=== PATIENT | female | born 1965 | race Caucasian/White ===

== ENCOUNTER 2016-06-06 08:42 | Emergency (ER) | payer BC ==
[2016-06-06 08:57] VITALS: TEMP 97.1
[2016-06-06] MEDS ORDERED: IPRATROPIUM-ALBUTEROL 3 ML NEB INHALATION STA (09:29)
--- NOTE | 2016-06-06 09:34 | ED ---
URI HPI - General Chief Complaint: Upper Respiratory Infection Stated Complaint: TIFFANY, BEEN THROUGH 2 ROUNDS ANTIBIOTICS Time Seen by Provider: 06/06/16 09:02 Source: patient, RN notes reviewed Mode of arrival: ambulatory Limitations: no limitations - History of Present Illness Initial Comments: Patient is a 50-year-old female presents to the emergency room for evaluation of cough 5 weeks. Patient states she went to [facility] on 05/24/16 was given amoxicillin. Patient states that she took a 10 day course with no relief of symptoms. Patient states [facility]16 and was given a Z-Mahendra and prednisone. Patient states that she finished those medications on Wednesday. Patient states symptoms have still not improved. Patient states she followed up with [facility] last night and they told her that there is nothing else they could do for her and that she needed to follow up with the nearest emergency room. Patient states she does not have primary care provider. Patient states she still continuing to have a productive cough. Patient states every time she coughs she feels dizzy and lightheaded. Patient denies any chest pain. Patient denies headache. Patient denies abdominal pain. Patient does admit she has a history of asthma. Patient states she's been giving herself albuterol nebulizer treatments at home with slight relief of symptoms. Patient states after the nebulized treatment wears off, symptoms return. Patient denies smoking. Patient denies any fevers or chills. - Related Data Home Medications Medication Instructions Recorded Confirmed Albuterol Inhaler [Ventolin 2 puff INHALATION BID 03/26/14 06/01/14 Inhaler] Fluticasone/Salmeterol [Advair 2 puff INHALATION QID 03/26/14 06/01/14 250-50 Diskus] predniSONE 5 mg PO DIRECTED 05/24/14 06/01/14 Previous Rx's Medication Instructions Recorded Budesonide [Pulmicort Flexhaler] 2 puff INHALATION BID 14 Days 06/06/16 Allergies Allergy/AdvReac Type Severity Reaction Status Date / Time losartan potassium Allergy Throat Verified 05/24/14 08:42 [From Chen] swelling montelukast sodium Allergy Cough Verified 05/24/14 08:42 [From Reji] Review of Systems ROS Statement: Those systems with pertinent positive or pertinent negative responses have been documented in the HPI. ROS Other: All systems not noted in ROS Statement are negative. Past Medical History Past Medical History: Asthma, Hypertension Additional Past Medical History / Comment(s): PT STATES THAT LAST WEEK SHE THOUGHT SHE MIGHT BE STARTING INTO A FLU WITH ALITTLE SORENESS IN HER THROAT AND THEN SHE NOTICED HER B/P WAS MILDLY ELEVATED AND SHE WAS EXPERIENCING VANESSA' S. AT TIMES SHE ALSO HAD TINGLING IN BOTH ARMS AND HANDS WHEN B/P ELEVATED. THIS AM SHE NOTED CHEST PAIN WHICH RADIATED UP INTO HER ENTIRE NECK. THIS CHEST PAIN/NECK PAIN WAS WORSE WHEN LYING FLAT. SHE ALSO FELT NAUSEA WITH THIS CHEST/ NECK PAIN. History of Any Multi-Drug Resistant Organisms: None Reported Past Surgical History: Section, Cholecystectomy Additional Past Surgical History / Comment(s): UTERINE ABLATION, right breast biopsy Past Psychological History: No Psychological Hx Reported Smoking Status: Never smoker Past Alcohol Use History: None Reported Past Drug Use History: None Reported - Past Family History Father Family Medical History: Congestive Heart Failure (CHF), Coronary Artery Disease (CAD) Additional Family Medical History / Comment(s): FATHER AT 52 OF CHF Sister(s) Family Medical History: Coronary Artery Disease (CAD), Diabetes Mellitus General Exam - General Exam Comments Initial Comments: Sitting on exam chair in no acute distress. Limitations: no limitations General appearance: alert, in no apparent distress Head exam: Present: atraumatic, normocephalic, normal inspection Eye exam: Present: normal appearance ENT exam: Present: normal exam Neck exam: Present: normal inspection Respiratory exam: Present: normal lung sounds bilaterally. Absent: respiratory distress Cardiovascular Exam: Present: regular rate, normal rhythm, normal heart sounds Extremities exam: Present: normal inspection Back exam: Present: normal inspection Neurological exam: Present: alert, oriented X3, CN II-XII intact, normal gait Psychiatric exam: Present: normal affect, normal mood Skin exam: Present: warm, dry, intact, normal color. Absent: rash Course Vital Signs 06/06/16 06/06/16 06/06/16 08:53 10:06 10:17 Temperature 97.1 F L Pulse Rate 84 82 95 Respiratory 18 Rate Blood Pressure 129/79 O2 Sat by Pulse 98 Oximetry 06/06/16 10:51 Temperature Pulse Rate 111 H Respiratory 20 Rate Blood Pressure 135/89 O2 Sat by Pulse 98 Oximetry Medical Decision Making - Medical Decision Making Patient is a 50-year-old female presents to the emergency room for evaluation of cough 5 weeks. Chest x-ray shows no acute findings. Patient states she is feeling better after breathing treatment. Appears patient is having an asthma exacerbation. Patient has already been on 2 courses of antibiotics. Advised patient to follow-up with a jewelry sales representative for further evaluation. Will try patient on Pulmicort until she can see a jewelry sales representative next week. Patient states she understands everything that was discussed with her. Return parameters discussed. Case discussed with Dr. King. - Radiology Data Radiology results: report reviewed, image reviewed Disposition Clinical Impression: Asthma exacerbation Disposition: HOME SELF-CARE Condition: Good Instructions: Asthma (ED) Additional Instructions: Uses Pulmicort inhaler twice a day. Continue using other medications as directed. Please follow up with jewelry sales representative on Wednesday for further evaluation. If any new symptom arises, symptoms worsen or fever develops, return to ER as soon as possible. Prescriptions: Budesonide [Pulmicort Flexhaler] 2 puff INHALATION BID 14 Days Referrals: Sigrid Bryant MD [REFERRING] - 1-2 days Shaq Ahumada MD [STAFF PHYSICIAN] - 1-2 days Time of Disposition: 10:35
--- NOTE | 2016-06-06 09:52 | XR ---
EXAMINATION TYPE: XR chest 2V DATE OF EXAM: 06/06/2016 9:45 AM COMPARISON: 06/01/2014 INDICATION: Pain, fever TECHNIQUE: Frontal and lateral views of the chest are obtained. FINDINGS: The heart size is normal. The pulmonary vasculature is normal. The lungs are clear. IMPRESSION: 1. No acute pulmonary process.
[2016-06-06 10:52] VITALS: BP 135/89; PULSE 111; RESP 20
== END 2016-06-06 10:52 | disposition home or self-care (01) ==
LOC: EC 08:42
DX: J45.901 Unspecified asthma with (acute) exacerbation (principal); Z79.51 Long term (current) use of inhaled steroids; Z88.8 Allergy status to other drugs, medicaments and biological substances
CPT/HCPCS: 71020; 94640; 99283

== ENCOUNTER → 2016-08-05 | Outpatient (CLI) | payer BC ==
--- NOTE | 2016-08-05 13:22 | MR ---
MR brain without contrast HISTORY: Carotid dissection, headache, visual disturbance, cerebrovascular accident Multiplanar multisequence imaging through the brain and correlated to prior of 23 May 2014 There is no restricted diffusion. There is no hemorrhage or hydrocephalus. There are normal vascular flow voids. The orbits show symmetric appearance. Brain signal is stable. Periventricular white matte r shows some ill-defined increased signal on inversion recovery and T2-weighted sequences. Cerebello pontine angles, corpus callosum, pituitary, cervical medullary junction are stable and unremarkable. No significant sinus disease IMPRESSION: No significant interval change, stable exam. Nonspecific white matter demyelination, foll ow-up as indicated.
--- NOTE | 2016-08-05 13:41 | MR ---
MR angiogram of the neck with and without contrast HISTORY: Carotid dissection, cerebrovascular accident, headache and visual disturbance Multiplanar multisequence and postcontrast images obtained through the neck following 20 cc MultiHanc e IV. 3-dimensional reconstructions performed The vertebral arteries, common carotid arteries, internal and external carotid arteries are patent. L eft and right subclavian arteries, innominate artery are patent. Anterior posterior circulations are patent within the brain. Redundancy present within the internal carotid artery in the right. IMPRESSION: Dissection is not evident. Patent vasculature as described.
== END | disposition home or self-care (01) ==
LOC: RADMRIMAIN 11:27
PROVIDERS: ATTEND Psychiatry & Neurology Neurology
DX: I63.9 Cerebral infarction, unspecified (principal); G43.919 Migraine, unspecified, intractable, without status migrainosus; H53.9 Unspecified visual disturbance; M54.2 Cervicalgia
CPT/HCPCS: 70549; 70551; A9577

== ENCOUNTER → 2017-06-07 | Outpatient (CLI) | payer BC ==
[2017-06-07 12:48] LABS: Basophils # (A) 0.1 k/uL (0-0.2); Basophils % (A) 1 %; Eosinophils # (A) 0.1 k/uL (0-0.7); Eosinophils % (A) 1 %; HCT 45.4 % (34.0-46.0); HGB 15.5 gm/dL (11.4-16.0); Lymphocytes # (A) 1.8 k/uL (1.0-4.8); Lymphocytes % (A) 34 %; MCH 32.9 pg (25.0-35.0); MCV 96.8 fL (80.0-100.0); Mean Platelet Volume 7.7; Monocytes # (A) 0.3 k/uL (0-1.0); Monocytes % (A) 6 %; Neutrophils % (A) 56 %; Platelet Count 258 k/uL (150-450); WBC 5.3 k/uL (3.8-10.6)
[2017-06-07 12:51] LABS: Anion Gap 11 mmol/L; Blood Urea Nitrogen 12 mg/dL (7-17); Calcium 10.1 mg/dL (8.4-10.2); Carbon Dioxide 28 mmol/L (22-30); Chloride 102 mmol/L (98-107); Glucose 87 mg/dL (74-99); Potassium 4.2 mmol/L (3.5-5.1); Sodium 141 mmol/L (137-145)
[2017-06-07 12:52] LABS: Appearance,Urine Clear (Clear); Bacteria,Urine Few /hpf; Bilirubin,Urine Negative (Negative); Blood,Urine Negative (Negative); Color,Urine Yellow; Glucose,Urine (UA) Negative (Negative); Ketones,Urine Negative (Negative); Leukocyte Esterase,Urine Trace (Negative); Mucus,Urine Rare /hpf; Nitrite,Urine Negative (Negative); PH, Urine 6.5 (5.0-8.0); Protein,Urine Negative (Negative); RBC,Urine 1 /hpf (0-5); Specific Gravity,Urine 1.006 (1.001-1.035); Squamous Epithelial Cell,Urine <1 /hpf (0-4); Urobilinogen,Urine <2.0 mg/dL (<2.0); WBC,Urine 6 /hpf (0-5)
== END | disposition home or self-care (01) ==
LOC: LABWHC1 12:11
PROVIDERS: ATTEND Internal Medicine
DX: N39.0 Urinary tract infection, site not specified (principal); R30.0 Dysuria; R10.9 Unspecified abdominal pain
CPT/HCPCS: 36415; 80048; 81001; 85025; 87077; 87086; 87186

== ENCOUNTER 2017-06-22 16:35 | Emergency (ER) | payer BC ==
[2017-06-22 16:44] VITALS: RESP 18
[2017-06-22] MEDS ORDERED: SODIUM CHLORIDE 0.9% 1,000 ML IV STA (17:32)
[2017-06-22] MEDS ORDERED: RX INFO: IV CONTRAST WAS GIVEN 1 EACH MISC MISCELLANE PRN (17:32)
[2017-06-22] MEDS ORDERED: ONDANSETRON 4 MG/2 ML VIAL IVP STA (17:32)
[2017-06-22 17:52] LABS: Basophils % (A) 1 %; Eosinophils % (A) 1 %; HCT 44.3 % (34.0-46.0); HGB 15.4 gm/dL (11.4-16.0); Lymphocytes # (A) 0.8 k/uL (1.0-4.8); Lymphocytes % (A) 19 %; MCH 32.6 pg (25.0-35.0); MCHC 34.7 g/dL (31.0-37.0); Mean Platelet Volume 7.6; Monocytes # (A) 0.4 k/uL (0-1.0); Monocytes % (A) 9 %; Neutrophils # (A) 3.1 k/uL (1.3-7.7); Neutrophils % (A) 70 %; Platelet Count 194 k/uL (150-450); RBC 4.72 m/uL (3.80-5.40); WBC 4.5 k/uL (3.8-10.6)
[2017-06-22 17:54] LABS: Appearance,Urine Clear (Clear); Bilirubin,Urine Negative (Negative); Blood,Urine Negative (Negative); Color,Urine Yellow; Glucose,Urine (UA) Negative (Negative); Ketones,Urine 1+ (Negative); Leukocyte Esterase,Urine Negative (Negative); Mucus,Urine Few /hpf; Nitrite,Urine Negative (Negative); PH, Urine 6.5 (5.0-8.0); Protein,Urine 1+ (Negative); RBC,Urine 4 /hpf (0-5); Specific Gravity,Urine 1.012 (1.001-1.035); Squamous Epithelial Cell,Urine <1 /hpf (0-4); Urobilinogen,Urine <2.0 mg/dL (<2.0); WBC,Urine 1 /hpf (0-5)
[2017-06-22 18:02] LABS: ALT 81 U/L (9-52); AST 58 U/L (14-36); Albumin 4.5 g/dL (3.5-5.0); Alkaline Phosphatase 62 U/L (38-126); Amylase 58 U/L (30-110); Anion Gap 14 mmol/L; Blood Urea Nitrogen 9 mg/dL (7-17); Calcium 9.8 mg/dL (8.4-10.2); Carbon Dioxide 27 mmol/L (22-30); Chloride 101 mmol/L (98-107); Glucose 94 mg/dL (74-99); Lipase 26 U/L (23-300); Potassium 4.1 mmol/L (3.5-5.1); Sodium 142 mmol/L (137-145); Total Bilirubin 0.9 mg/dL (0.2-1.3); Total Protein 7.1 g/dL (6.3-8.2)
--- NOTE | 2017-06-22 18:05 | ED ---
General Adult HPI - General Chief complaint: Abdominal Pain Stated complaint: Abd Pain Time Seen by Provider: 06/22/17 17:16 Source: patient, RN notes reviewed Mode of arrival: ambulatory Limitations: no limitations - History of Present Illness Initial comments: Patient is a 51-year-old female who presents emergency room today with a chief complaint of increased abdominal pain. She does admit that she began having some increased pain in the right lower quadrant that started yesterday. Patient does not that she saw the family doctor was advised coming here to the emergency room to rule out appendicitis. Patient does admit that she's been treated for an upper respiratory infection over the last week. She states his abdominal pain started last night as a sharp pain located in the right lower quadrant. Doesn't that she's had a decreased appetite. Does admit to feeling nauseated. She denies any other complaints or symptoms. Patient denies any recent shortness of breath, chest pain, back pain, numbness or tingling, dysuria or hematuria, constipation or diarrhea, headaches or visual changes, or any other complaints. - Related Data Home Medications Medication Instructions Recorded Confirmed Fluticasone Nasal [place] [Flonase 1 spray EA NOSTRIL DAILY 06/22/17 06/22/17 Nasal [place]] Hydroxychloroquine Sulfate 200 mg PO DAILY 06/22/17 06/22/17 [Plaquenil] Multivitamins, Thera [Multivitamin 1 tab PO DAILY 06/22/17 06/22/17 (formulary)] Previous Rx's Medication Instructions Recorded Ibuprofen [Motrin] 600 mg PO Q6HR PRN #20 day 06/22/17 Allergies Allergy/AdvReac Type Severity Reaction Status Date / Time losartan potassium Allergy Throat Verified 06/22/17 17:51 [From Cozaar] swelling montelukast sodium Allergy Swelling Verified 06/22/17 17:51 [From Singulair] Review of Systems ROS Statement: Those systems with pertinent positive or pertinent negative responses have been documented in the HPI. ROS Other: All systems not noted in ROS Statement are negative. Past Medical History Past Medical History: Asthma, Hypertension Additional Past Medical History / Comment(s): PT STATES THAT LAST WEEK SHE THOUGHT SHE MIGHT BE STARTING INTO A FLU WITH ALITTLE SORENESS IN HER THROAT AND THEN SHE NOTICED HER B/P WAS MILDLY ELEVATED AND SHE WAS EXPERIENCING VANESSA' S. AT TIMES SHE ALSO HAD TINGLING IN BOTH ARMS AND HANDS WHEN B/P ELEVATED. THIS AM SHE NOTED CHEST PAIN WHICH RADIATED UP INTO HER ENTIRE NECK. THIS CHEST PAIN/NECK PAIN WAS WORSE WHEN LYING FLAT. SHE ALSO FELT NAUSEA WITH THIS CHEST/ NECK PAIN. History of Any Multi-Drug Resistant Organisms: None Reported Past Surgical History: Section, Cholecystectomy Additional Past Surgical History / Comment(s): UTERINE ABLATION, right breast biopsy Past Psychological History: No Psychological Hx Reported Smoking Status: Never smoker Past Alcohol Use History: None Reported Past Drug Use History: None Reported - Past Family History Father Family Medical History: Congestive Heart Failure (CHF), Coronary Artery Disease (CAD) Additional Family Medical History / Comment(s): FATHER AT 52 OF CHF Sister(s) Family Medical History: Coronary Artery Disease (CAD), Diabetes Mellitus General Exam - General Exam Comments Initial Comments: General: The patient is awake and alert, in no distress, and does not appear acutely ill. Eye: Pupils are equal, round and reactive to light, extra-ocular movements are intact. No nystagmus. There is normal conjunctiva bilaterally. No signs of icterus. Ears, nose, mouth and throat: There are moist mucous membranes and no oral lesions. Neck: The neck is supple, there is no tenderness or JVD. Cardiovascular: There is a regular rate and rhythm. No murmur, rub or gallop is appreciated. Respiratory: Lungs are clear to auscultation, respirations are non-labored, breath sounds are equal. No wheezes, stridor, rales, or rhonchi. Gastrointestinal: Normal appearance of the abdomen. Normal bowel sounds. Abdomen soft on palpation. Patient does have tenderness right lower quadrant over McBurney's point. No rebound tenderness. No guarding. No CVA tenderness. Musculoskeletal: Normal ROM, no tenderness. Strength 5/5. Sensation intact. Pulses equal bilaterally 2+. Neurological: A&O x 3. CN II-XII intact, There are no obvious motor or sensory deficits. Coordination appears grossly intact. Speech is normal. Skin: Skin is warm and dry and no rashes or lesions are noted. Psychiatric: Cooperative, appropriate mood & affect, normal judgment. Limitations: no limitations Course Vital Signs 06/22/17 06/22/17 06/22/17 16:42 17:36 19:10 Temperature 98.1 F 97.3 F L 98.7 F Pulse Rate 89 96 98 Respiratory 18 18 18 Rate Blood Pressure 157/97 160/79 113/78 O2 Sat by Pulse 100 98 98 Oximetry Medical Decision Making - Medical Decision Making Patient reexamined at this time shows no signs of distress. She is resting comfortably. Her labs been reviewed. No elevated white count. Negative lactic acid. Patient has no fever here in the emergency room. Patient's CT of the abdomen and pelvis is negative. There is no evidence of appendicitis. No other acute abnormalities. Results were discussed with the patient. At this time patient will be discharged home advised to follow-up the family doctor. Advised return to emergency room if symptoms increase or worsen or for any other concerns. - Lab Data Result diagrams: 06/22/17 17:25 06/22/17 17:25 Lab Results 06/22/17 06/22/17 06/22/17 Range/Units 17:25 17:25 17:25 WBC 4.5 (3.8-10.6) k/uL RBC 4.72 (3.80-5.40) m/uL Hgb 15.4 (11.4-16.0) gm/dL Hct 44.3 (34.0-46.0) % MCV 94.0 (80.0-100.0) fL MCH 32.6 (25.0-35.0) pg MCHC 34.7 (31.0-37.0) g/dL RDW 12.0 (11.5-15.5) % Plt Count 194 (150-450) k/uL Neutrophils % 70 % Lymphocytes % 19 % Monocytes % 9 % Eosinophils % 1 % Basophils % 1 % Neutrophils # 3.1 (1.3-7.7) k/uL Lymphocytes # 0.8 L (1.0-4.8) k/uL Monocytes # 0.4 (0-1.0) k/uL Eosinophils # 0.0 (0-0.7) k/uL Basophils # 0.0 (0-0.2) k/uL Sodium 142 (137-145) mmol/L Potassium 4.1 (3.5-5.1) mmol/L Chloride 101 (98-107) mmol/L Carbon Dioxide 27 (22-30) mmol/L Anion Gap 14 mmol/L BUN 9 (7-17) mg/dL Creatinine 0.59 (0.52-1.04) mg/dL Est GFR (MDRD) Af Amer >60 (>60 ml/min/1.73 sqM) Est GFR (MDRD) Non-Af >60 (>60 ml/min/1.73 sqM) Glucose 94 (74-99) mg/dL Plasma Lactic Acid Mike 1.2 (0.7-2.0) mmol/L Calcium 9.8 (8.4-10.2) mg/dL Total Bilirubin 0.9 (0.2-1.3) mg/dL AST 58 H (14-36) U/L ALT 81 H (9-52) U/L Alkaline Phosphatase 62 (38-126) U/L Total Protein 7.1 (6.3-8.2) g/dL Albumin 4.5 (3.5-5.0) g/dL Amylase 58 (30-110) U/L Lipase 26 (23-300) U/L Urine Color Urine Appearance (Clear) Urine pH (5.0-8.0) Ur Specific [place] (1.001-1.035) Urine Protein (Negative) Urine Glucose (UA) (Negative) Urine Ketones (Negative) Urine Blood (Negative) Urine Nitrite (Negative) Urine Bilirubin (Negative) Urine Urobilinogen (<2.0) mg/dL Ur Leukocyte Esterase (Negative) Urine RBC (0-5) /hpf Urine WBC (0-5) /hpf Ur Squamous Epith Cells (0-4) /hpf Urine Mucus (None) /hpf Urine HCG, Qual (Not Detectd) 06/22/17 06/22/17 Range/Units 17:25 17:25 WBC (3.8-10.6) k/uL RBC (3.80-5.40) m/uL Hgb (11.4-16.0) gm/dL Hct (34.0-46.0) % MCV (80.0-100.0) fL MCH (25.0-35.0) pg MCHC (31.0-37.0) g/dL RDW (11.5-15.5) % Plt Count (150-450) k/uL Neutrophils % % Lymphocytes % % Monocytes % % Eosinophils % % Basophils % % Neutrophils # (1.3-7.7) k/uL Lymphocytes # (1.0-4.8) k/uL Monocytes # (0-1.0) k/uL Eosinophils # (0-0.7) k/uL Basophils # (0-0.2) k/uL Sodium (137-145) mmol/L Potassium (3.5-5.1) mmol/L Chloride (98-107) mmol/L Carbon Dioxide (22-30) mmol/L Anion Gap mmol/L BUN (7-17) mg/dL Creatinine (0.52-1.04) mg/dL Est GFR (MDRD) Af Amer (>60 ml/min/1.73 sqM) Est GFR (MDRD) Non-Af (>60 ml/min/1.73 sqM) Glucose (74-99) mg/dL Plasma Lactic Acid Mike (0.7-2.0) mmol/L Calcium (8.4-10.2) mg/dL Total Bilirubin (0.2-1.3) mg/dL AST (14-36) U/L ALT (9-52) U/L Alkaline Phosphatase (38-126) U/L Total Protein (6.3-8.2) g/dL Albumin (3.5-5.0) g/dL Amylase (30-110) U/L Lipase (23-300) U/L Urine Color Yellow Urine Appearance Clear (Clear) Urine pH 6.5 (5.0-8.0) Ur Specific [place] 1.012 (1.001-1.035) Urine Protein 1+ H (Negative) Urine Glucose (UA) Negative (Negative) Urine Ketones 1+ H (Negative) Urine Blood Negative (Negative) Urine Nitrite Negative (Negative) Urine Bilirubin Negative (Negative) Urine Urobilinogen <2.0 (<2.0) mg/dL Ur Leukocyte Esterase Negative (Negative) Urine RBC 4 (0-5) /hpf Urine WBC 1 (0-5) /hpf Ur Squamous Epith Cells <1 (0-4) /hpf Urine Mucus Few H (None) /hpf Urine HCG, Qual Not Detected (Not Detectd) Disposition Clinical Impression: Abdominal pain Disposition: HOME SELF-CARE Condition: Good Instructions: Abdominal Pain (ED) Additional Instructions: Please follow-up with family doctor in the next 2 days of symptoms have not improved. Please return to emergency room if the symptoms increase or worsen or for any other concerns. Prescriptions: Ibuprofen [Motrin] 600 mg PO Q6HR PRN #20 day PRN Reason: Pain Referrals: Daljit Alberto MD [Primary Care Provider] - 1-2 days Time of Disposition: 19:34
--- NOTE | 2017-06-22 18:41 | XR ---
EXAMINATION TYPE: XR abdomen and pelvis 2 views DATE OF EXAM: 06/22/2017 COMPARISON: NONE HISTORY: Pain in the right lower quadrant, nausea and constipation TECHNIQUE: Upright views - 2V FINDINGS: There is no pneumatosis or pneumoperitoneum. Bowel gas pattern is normal. Bones and soft ti ssues and visualized lung bases and pleural spaces are unremarkable. IMPRESSION: No acute process.
--- NOTE | 2017-06-22 19:04 | CT ---
EXAMINATION TYPE: CT abdomen pelvis w con DATE OF EXAM: 06/22/2017 COMPARISON: NONE HISTORY: RLQ pain/fever x2 days. CT DLP: 595.2 mGycm Automated exposure control for dose reduction was used. TECHNIQUE: Helical acquisition of images was performed from the lung bases through the pelvis. Noted that 3-min delay scanned though pelvis due to off centering for first scan due to having to mov e pt out of gantry for vomiting. CONTRAST: Performed without Oral Contrast and with IV Contrast, patient injected with 100 mL of Omnip aque 300. FINDINGS: LUNG BASES: No significant abnormality is appreciated. LIVER/GB: No significant abnormality is appreciated. PANCREAS: No significant abnormality is seen. SPLEEN: No significant abnormality is seen. ADRENALS: No significant abnormality is seen. KIDNEYS: No significant abnormality is seen. FREE AIR: No free air is visualized. RETROPERITONEAL ADENOPATHY: None visualized REPRODUCTIVE ORGANS: No significant abnormality is seen URINARY BLADDER: No significant abnormality is seen. PELVIC ADENOPATHY: None visualized. OSSEOUS STRUCTURES: No significant abnormality is seen. BOWEL: No significant abnormality is seen. OTHER: Right upper quadrant has normal appearance. IMPRESSION: NO ACUTE PROCESS.
[2017-06-22 19:11] VITALS: TEMP 98.7
[2017-06-22 19:39] VITALS: BP 130/65; PULSE 90
== END 2017-06-22 19:39 | disposition home or self-care (01) ==
LOC: EC 16:35
DX: R10.31 Right lower quadrant pain (principal); R11.0 Nausea; J45.909 Unspecified asthma, uncomplicated; Z79.51 Long term (current) use of inhaled steroids; Z79.899 Other long term (current) drug therapy; Z88.8 Allergy status to other drugs, medicaments and biological substances
CPT/HCPCS: 36415; 80053; 82150; 83605; 83690; 85025; 81001; 81025; 74018; 74177; 99284; 96374; 96361; J2405; Q9967

== ENCOUNTER → 2017-07-03 | Outpatient (CLI) | payer BC ==
[2017-07-03 10:01] LABS: Anion Gap 11 mmol/L; Blood Urea Nitrogen 13 mg/dL (7-17); Calcium 9.6 mg/dL (8.4-10.2); Carbon Dioxide 28 mmol/L (22-30); Chloride 101 mmol/L (98-107); Glucose 82 mg/dL (74-99); Potassium 4.5 mmol/L (3.5-5.1); Sodium 140 mmol/L (137-145)
[2017-07-03 10:15] LABS: T4, Free (Free Thyroxine) 1.24 ng/dL (0.78-2.19)
== END | disposition home or self-care (01) ==
LOC: LABWHC1 07:47
PROVIDERS: ATTEND Internal Medicine
DX: R63.4 Abnormal weight loss (principal)
CPT/HCPCS: 36415; 80048; 82024; 82533; 84439; 84443

== ENCOUNTER → 2018-03-17 | Outpatient (CLI) | payer BC | LOC: LABWHC1 08:46 | PROVIDERS: ATTEND Internal Medicine | DX: E78.2 Mixed hyperlipidemia (principal) | CPT/HCPCS: 36415; 80061 ==

== ENCOUNTER 2018-11-05 08:28 | Emergency (ER) | payer BC ==
[2018-11-05] MEDS ORDERED: IPRATROPIUM-ALBUTEROL 3 ML NEB INHALATION STA (08:47)
[2018-11-05] MEDS ORDERED: methylPREDNISolone SOD SUCCI 125 MG/2 ML VIAL IV STA (08:47)
[2018-11-05] MEDS ORDERED: SODIUM CHLORIDE 0.9% 1,000 ML IV STA (08:47)
[2018-11-05] MEDS ORDERED: METOCLOPRAMIDE 5 MG/ML 2 ML VIAL IVP STA (08:48)
--- NOTE | 2018-11-05 08:51 | ED ---
General Adult HPI - General Chief complaint: Upper Respiratory Infection Stated complaint: Cough Time Seen by Provider: 11/05/18 08:38 Source: patient, RN notes reviewed Mode of arrival: ambulatory Limitations: no limitations - History of Present Illness Initial comments: Patient is a pleasant 82-year-old female presenting to the emergency Department with complaints of cough. Onset of symptoms was around 4 weeks ago. Patient has had continued symptoms despite treatment with Cipro and steroids by her primary care physician. Patient does have a history of asthma as well. Cough does have occasional white sputum. No fevers. Patient states she does feel a little short of breath. Patient states she also has sinus congestion. Patient states she started developing a headache yesterday that is worse today. Headache was gradual onset and has been aggressively worsened since that time. Patient does have some nausea associated with this. - Related Data Home Medications Medication Instructions Recorded Confirmed Fluticasone Nasal [place] [Flonase 1 spray EA NOSTRIL DAILY 06/22/17 11/05/18 Nasal [place]] Hydroxychloroquine Sulfate 200 mg PO DAILY 06/22/17 11/05/18 [Plaquenil] Multivitamins, Thera [Multivitamin 1 tab PO DAILY 06/22/17 11/05/18 (formulary)] Albuterol Nebulized [Ventolin 2.5 mg INHALATION RT-Q6H PRN 11/05/18 11/05/18 Nebulized] [place]-3 Fatty Acids [[place]-3] 1,000 mg PO DAILY 11/05/18 11/05/18 Omeprazole [PriLOSEC] 20 mg PO DAILY PRN 11/05/18 11/05/18 Previous Rx's Medication Instructions Recorded Azithromycin [Zithromax Z-pack] 250 mg PO DIRECTED #6 tab 11/05/18 methylPREDNISolone Dose Pack 24 mg PO DAILY #1 tab 11/05/18 [Medrol Dose Pack] Allergies Allergy/AdvReac Type Severity Reaction Status Date / Time losartan potassium Allergy Throat Verified 11/05/18 09:16 [From Cozaar] swelling montelukast sodium Allergy Swelling Verified 11/05/18 09:16 [From Singulair] Review of Systems ROS Statement: Those systems with pertinent positive or pertinent negative responses have been documented in the HPI. ROS Other: All systems not noted in ROS Statement are negative. Constitutional: Denies: fever Eyes: Denies: eye pain ENT: Reports: congestion. Denies: ear pain Respiratory: Reports: cough, dyspnea Cardiovascular: Denies: chest pain Gastrointestinal: Reports: nausea. Denies: abdominal pain Genitourinary: Denies: dysuria Musculoskeletal: Denies: back pain Skin: Denies: rash Neurological: Reports: headache. Denies: weakness, confusion Past Medical History Past Medical History: Asthma, Hypertension Additional Past Medical History / Comment(s): PT STATES THAT LAST WEEK SHE T HOUGHT SHE MIGHT BE STARTING INTO A FLU WITH ALITTLE SORENESS IN HER THROAT AND THEN SHE NOTICED HER B/P WAS MILDLY ELEVATED AND SHE WAS EXPERIENCING VANESSA'S. AT TIMES SHE ALSO HAD TINGLING IN BOTH ARMS AND HANDS WHEN B/P ELEVATED. THIS AM SHE NOTED CHEST PAIN WHICH RADIATED UP INTO HER ENTIRE NECK. THIS CHEST PAIN/NECK PAIN WAS WORSE WHEN LYING FLAT. SHE ALSO FELT NAUSEA WITH THIS CHEST/NECK PAIN. History of Any Multi-Drug Resistant Organisms: None Reported Past Surgical History: Section, Cholecystectomy Additional Past Surgical History / Comment(s): UTERINE ABLATION, right breast biopsy Past Psychological History: No Psychological Hx Reported Smoking Status: Never smoker Past Alcohol Use History: None Reported Past Drug Use History: None Reported - Past Family History Father Family Medical History: Congestive Heart Failure (CHF), Coronary Artery Disease (CAD) Additional Family Medical History / Comment(s): FATHER AT 52 OF CHF Sister(s) Family Medical History: Coronary Artery Disease (CAD), Diabetes Mellitus General Exam Limitations: no limitations General appearance: alert, in no apparent distress Head exam: Present: atraumatic Eye exam: Present: normal appearance, PERRL, EOMI. Absent: nystagmus ENT exam: Present: normal oropharynx Neck exam: Present: normal inspection Respiratory exam: Present: normal lung sounds bilaterally. Absent: respiratory distress Cardiovascular Exam: Present: regular rate, normal rhythm GI/Abdominal exam: Present: soft. Absent: tenderness Extremities exam: Present: normal inspection. Absent: pedal edema, calf tenderness Neurological exam: Present: alert, oriented X3, CN II-XII intact. Absent: motor sensory deficit Expanded Neurological exam: Present: protecting the airway Speech: Present: fluid speech Motor strength exam: RUE: 5, LUE: 5, RLE: 5, LLE: 5 Eye Response: (4) open spontaneously Motor Response: (6) obeys commands Verbal Response: (5) oriented Psychiatric exam: Present: normal affect, normal mood Skin exam: Present: normal color Course Vital Signs 11/05/18 11/05/18 11/05/18 08:30 09:03 09:08 Temperature 98.2 F Pulse Rate 77 76 84 Respiratory 16 Rate Blood Pressure 157/85 O2 Sat by Pulse 99 Oximetry 11/05/18 09:19 Temperature Pulse Rate Respiratory 18 Rate Blood Pressure O2 Sat by Pulse Oximetry Medical Decision Making - Medical Decision Making Patient reevaluated and resting comfortably in bed. Patient states she feels much better at this time. Patient is updated on results and need for follow-up. - Lab Data Result diagrams: 11/05/18 09:13 11/05/18 09:13 Lab Results 11/05/18 11/05/18 11/05/18 Range/Units 09:13 09:13 09:13 WBC 8.5 (3.8-10.6) k/uL RBC 4.60 (3.80-5.40) m/uL Hgb 14.6 (11.4-16.0) gm/dL Hct 44.2 (34.0-46.0) % MCV 96.2 (80.0-100.0) fL MCH 31.8 (25.0-35.0) pg MCHC 33.1 (31.0-37.0) g/dL RDW 12.5 (11.5-15.5) % Plt Count 227 (150-450) k/uL Neutrophils % 82 % Lymphocytes % 14 % Monocytes % 3 % Eosinophils % 1 % Basophils % 0 % Neutrophils # 6.9 (1.3-7.7) k/uL Lymphocytes # 1.2 (1.0-4.8) k/uL Monocytes # 0.3 (0-1.0) k/uL Eosinophils # 0.0 (0-0.7) k/uL Basophils # 0.0 (0-0.2) k/uL PT 10.5 (9.0-12.0) sec INR 1.0 (<1.2) APTT 25.6 (22.0-30.0) sec D-Dimer <0.17 (<0.60) mg/L FEU Sodium 141 (137-145) mmol/L Potassium 4.4 (3.5-5.1) mmol/L Chloride 106 (98-107) mmol/L Carbon Dioxide 27 (22-30) mmol/L Anion Gap 8 mmol/L BUN 19 H (7-17) mg/dL Creatinine 0.56 (0.52-1.04) mg/dL Est GFR (CKD-EPI)AfAm >90 (>60 ml/min/1.73 sqM) Est GFR (CKD-EPI)NonAf >90 (>60 ml/min/1.73 sqM) Glucose 102 H (74-99) mg/dL Calcium 9.5 (8.4-10.2) mg/dL Total Bilirubin 0.7 (0.2-1.3) mg/dL AST 32 (14-36) U/L ALT 48 (9-52) U/L Alkaline Phosphatase 44 (38-126) U/L NT-Pro-B Natriuret Pep pg/mL Total Protein 6.7 (6.3-8.2) g/dL Albumin 4.2 (3.5-5.0) g/dL 11/05/18 Range/Units 09:13 WBC (3.8-10.6) k/uL RBC (3.80-5.40) m/uL Hgb (11.4-16.0) gm/dL Hct (34.0-46.0) % MCV (80.0-100.0) fL MCH (25.0-35.0) pg MCHC (31.0-37.0) g/dL RDW (11.5-15.5) % Plt Count (150-450) k/uL Neutrophils % % Lymphocytes % % Monocytes % % Eosinophils % % Basophils % % Neutrophils # (1.3-7.7) k/uL Lymphocytes # (1.0-4.8) k/uL Monocytes # (0-1.0) k/uL Eosinophils # (0-0.7) k/uL Basophils # (0-0.2) k/uL PT (9.0-12.0) sec INR (<1.2) APTT (22.0-30.0) sec D-Dimer (<0.60) mg/L FEU Sodium (137-145) mmol/L Potassium (3.5-5.1) mmol/L Chloride (98-107) mmol/L Carbon Dioxide (22-30) mmol/L Anion Gap mmol/L BUN (7-17) mg/dL Creatinine (0.52-1.04) mg/dL Est GFR (CKD-EPI)AfAm (>60 ml/min/1.73 sqM) Est GFR (CKD-EPI)NonAf (>60 ml/min/1.73 sqM) Glucose (74-99) mg/dL Calcium (8.4-10.2) mg/dL Total Bilirubin (0.2-1.3) mg/dL AST (14-36) U/L ALT (9-52) U/L Alkaline Phosphatase (38-126) U/L NT-Pro-B Natriuret Pep 35 pg/mL Total Protein (6.3-8.2) g/dL Albumin (3.5-5.0) g/dL - Radiology Data Radiology results: image reviewed (Chest x-ray shows no acute process) Disposition Clinical Impression: Asthmatic bronchitis Disposition: HOME SELF-CARE Condition: Stable Instructions (If sedation given, give patient instructions): Acute Bronchitis (ED) Additional Instructions: Please do follow-up with Dr. Alberto in the next day or 2 for recheck. Return for fevers, difficulty breathing, worsening or changing symptoms or other concerns. Prescriptions: methylPREDNISolone Dose Pack [Medrol Dose Pack] 24 mg PO DAILY #1 tab Azithromycin [Zithromax Z-pack] 250 mg PO DIRECTED #6 tab Is patient prescribed a controlled substance at d/c from ED?: No Referrals: Daljit Alberto MD [Primary Care Provider] - 1-2 days Time of Disposition: 10:30
[2018-11-05 09:28] LABS: Basophils % (A) 0 %; Eosinophils % (A) 1 %; HCT 44.2 % (34.0-46.0); HGB 14.6 gm/dL (11.4-16.0); Lymphocytes # (A) 1.2 k/uL (1.0-4.8); Lymphocytes % (A) 14 %; MCH 31.8 pg (25.0-35.0); MCHC 33.1 g/dL (31.0-37.0); MCV 96.2 fL (80.0-100.0); Mean Platelet Volume 6.8; Monocytes # (A) 0.3 k/uL (0-1.0); Monocytes % (A) 3 %; Neutrophils # (A) 6.9 k/uL (1.3-7.7); Neutrophils % (A) 82 %; Platelet Count 227 k/uL (150-450); RDW 12.5 % (11.5-15.5); WBC 8.5 k/uL (3.8-10.6)
[2018-11-05 09:34] LABS: ALT 48 U/L (9-52); AST 32 U/L (14-36); African American GFR (CKD) >90 (>60 ml/min/1.73 sqM); Albumin 4.2 g/dL (3.5-5.0); Alkaline Phosphatase 44 U/L (38-126); Anion Gap 8 mmol/L; Blood Urea Nitrogen 19 mg/dL (7-17); Calcium 9.5 mg/dL (8.4-10.2); Carbon Dioxide 27 mmol/L (22-30); Chloride 106 mmol/L (98-107); Glucose 102 mg/dL (74-99); Potassium 4.4 mmol/L (3.5-5.1); Sodium 141 mmol/L (137-145); Total Bilirubin 0.7 mg/dL (0.2-1.3); Total Protein 6.7 g/dL (6.3-8.2)
--- NOTE | 2018-11-05 09:38 | XR ---
EXAMINATION TYPE: XR chest 2V DATE OF EXAM ORDERED: 11/05/2018 HISTORY: difficulty breathing. REFERENCE: Previous study dated 06/06/2016. FINDINGS: The lungs are clear. Pleural spaces are clear. Heart size is normal. IMPRESSION: NORMAL CHEST.
[2018-11-05 09:40] LABS: Partial Thromboplastin Time 25.6 sec (22.0-30.0); Prothrombin Time 10.5 sec (9.0-12.0)
[2018-11-05 09:45] LABS: D-Dimer <0.17 mg/L FEU (<0.60)
[2018-11-05 10:32] VITALS: BP 125/74; PULSE 72; RESP 16; TEMP 97.8
== END 2018-11-05 10:31 | disposition home or self-care (01) ==
LOC: EC 08:28
DX: J45.909 Unspecified asthma, uncomplicated (principal); I10 Essential (primary) hypertension; Z79.51 Long term (current) use of inhaled steroids; Z79.899 Other long term (current) drug therapy; Z88.8 Allergy status to other drugs, medicaments and biological substances
CPT/HCPCS: 36415; 94640; 85379; 83880; 80053; 85025; 85610; 85730; 71046; 99284; 96374; 96375; 96361; J2765; J2930

== ENCOUNTER → 2018-11-05 | Outpatient (CLI) | payer BC ==
[2018-11-05 15:57] LABS: LDL Cholesterol,Calculated 107.4 mg/dL (0.0-131.0); VLDL Calculation 12.6 mg/dL (5.00-40.00)
== END | disposition home or self-care (01) ==
LOC: LABWHC1 10:44
PROVIDERS: ATTEND Internal Medicine
DX: E78.5 Hyperlipidemia, unspecified (principal)
CPT/HCPCS: 36415; 80061

== ENCOUNTER → 2019-04-08 | Outpatient (CLI) | payer BC ==
[2019-04-08 11:27] LABS: Basophils % (A) 0 %; Eosinophils # (A) 0.1 k/uL (0-0.7); Eosinophils % (A) 1 %; HCT 41.2 % (34.0-46.0); HGB 14.5 gm/dL (11.4-16.0); Lymphocytes # (A) 1.8 k/uL (1.0-4.8); Lymphocytes % (A) 25 %; MCH 33.7 pg (25.0-35.0); MCHC 35.3 g/dL (31.0-37.0); MCV 95.6 fL (80.0-100.0); Mean Platelet Volume 6.2; Monocytes # (A) 0.4 k/uL (0-1.0); Monocytes % (A) 6 %; Neutrophils # (A) 4.8 k/uL (1.3-7.7); Neutrophils % (A) 67 %; Platelet Count 228 k/uL (150-450); RBC 4.31 m/uL (3.80-5.40); RDW 12.4 % (11.5-15.5); WBC 7.2 k/uL (3.8-10.6)
[2019-04-08 16:48] LABS: ALT 50 U/L (8-44); AST 36 U/L (13-35); African American GFR (CKD) 121.5 (60.0-200.0); Albumin/Globulin Ratio 2.28 (1.60-3.17); Alkaline Phosphatase 50 U/L (41-126); Bilirubin, Conjugated <0.20 mg/dL (0.20-0.40); Globulin 1.8 g/dL (1.6-3.3); Non-African American GFR(CKD) 104.8 (60.0-200.0); Total Bilirubin 0.5 mg/dL (0.2-1.2); Total Protein 5.9 g/dL (6.2-8.2)
== END | disposition home or self-care (01) ==
LOC: LABWHC1 10:44
PROVIDERS: ATTEND Internal Medicine
DX: M25.50 Pain in unspecified joint (principal); M06.9 Rheumatoid arthritis, unspecified; Z51.81 Encounter for therapeutic drug level monitoring
CPT/HCPCS: 36415; 80076; 82565; 85025

== ENCOUNTER 2019-04-11 06:51 | Emergency (ER) | payer BC ==
[2019-04-11] MEDS ORDERED: MORPHINE SULFATE 4 MG/ML SYRINGE IV STA (07:06)
[2019-04-11] MEDS ORDERED: ONDANSETRON 4 MG/2 ML VIAL IVP STA (07:06)
[2019-04-11] MEDS ORDERED: SODIUM CHLORIDE 0.9% 1,000 ML IV STA (07:06)
[2019-04-11 07:58] LABS: Basophils # (A) 0.1 k/uL (0-0.2); Basophils % (A) 1 %; Eosinophils % (A) 0 %; HCT 44.5 % (34.0-46.0); HGB 15.7 gm/dL (11.4-16.0); Lymphocytes # (A) 0.3 k/uL (1.0-4.8); Lymphocytes % (A) 4 %; MCH 33.5 pg (25.0-35.0); MCHC 35.3 g/dL (31.0-37.0); MCV 95.1 fL (80.0-100.0); Mean Platelet Volume 6.6; Monocytes # (A) 0.2 k/uL (0-1.0); Monocytes % (A) 3 %; Neutrophils # (A) 7.8 k/uL (1.3-7.7); Neutrophils % (A) 92 %; Platelet Count 207 k/uL (150-450); RBC 4.68 m/uL (3.80-5.40); RDW 12.2 % (11.5-15.5); WBC 8.4 k/uL (3.8-10.6)
[2019-04-11 08:01] LABS: Appearance,Urine Clear (Clear); Bilirubin,Urine Negative (Negative); Blood,Urine Negative (Negative); Color,Urine Yellow; Glucose,Urine (UA) Negative (Negative); Ketones,Urine 1+ (Negative); Leukocyte Esterase,Urine Negative (Negative); Nitrite,Urine Negative (Negative); Protein,Urine Trace (Negative); Specific Gravity,Urine 1.019 (1.001-1.035); Urobilinogen,Urine <2.0 mg/dL (<2.0)
--- NOTE | 2019-04-11 08:04 | ED ---
Abdominal Pain HPI - General Chief Complaint: Abdominal Pain Stated Complaint: abd pain, vomiting Time Seen by Provider: 04/11/19 06:57 Source: patient, RN notes reviewed Mode of arrival: ambulatory Limitations: no limitations - History of Present Illness Initial Comments: This is a 53-year-old female presents emergency Department chief complaint of abdominal pain, nausea vomiting. Patient states that she has not felt well over the last month or so but states last few days she's had worsening symptoms. She complains of left-sided abdominal pain, diffuse bloating and intermittent diarrhea. Patient states that she did have a fever last night of 101-102. Patient states she is concerned because she was on methotrexate and Plaquenil but had to discontinue methotrexate because he believe this is causing her abdominal issues. She is unable to see her GI physician at [facility] until May. Patient has no dysuria no hematuria denies any on her hematochezia. states that she's had prior section, cholecystectomy she has had a colonoscopy past with no acute findings. - Related Data Home Medications Medication Instructions Recorded Confirmed Fluticasone Nasal [place] [Flonase 1 spray EA NOSTRIL DAILY 06/22/17 11/05/18 Nasal [place]] Hydroxychloroquine Sulfate 200 mg PO DAILY 06/22/17 11/05/18 [Plaquenil] Multivitamins, Thera [Multivitamin 1 tab PO DAILY 06/22/17 11/05/18 (formulary)] Albuterol Nebulized [Ventolin 2.5 mg INHALATION RT-Q6H PRN 11/05/18 11/05/18 Nebulized] [place]-3 Fatty Acids [[place]-3] 1,000 mg PO DAILY 11/05/18 11/05/18 Omeprazole [PriLOSEC] 20 mg PO DAILY PRN 11/05/18 11/05/18 Previous Rx's Medication Instructions Recorded Azithromycin [Zithromax Z-pack] 250 mg PO DIRECTED #6 tab 11/05/18 methylPREDNISolone Dose Pack 24 mg PO DAILY #1 tab 11/05/18 [Medrol Dose Pack] Amoxicillin/Potassium Clav 1 tab PO Q12HR #20 tab 04/11/19 [Augmentin 875-125 Tablet] Allergies Allergy/AdvReac Type Severity Reaction Status Date / Time losartan potassium Allergy Throat Verified 04/11/19 06:56 [From Cozaar] swelling montelukast sodium Allergy Swelling Verified 04/11/19 06:56 [From [facility]] Review of Systems ROS Statement: Those systems with pertinent positive or pertinent negative responses have been documented in the HPI. ROS Other: All systems not noted in ROS Statement are negative. Past Medical History Past Medical History: Asthma, Hypertension Additional Past Medical History / Comment(s): PT STATES THAT LAST WEEK SHE THOUGHT SHE MIGHT BE STARTING INTO A FLU WITH ALITTLE SORENESS IN HER THROAT AND THEN SHE NOTICED HER B/P WAS MILDLY ELEVATED AND SHE WAS EXPERIENCING VANESSA'S. AT TIMES SHE ALSO HAD TINGLING IN BOTH ARMS AND HANDS WHEN B/P ELEVATED. THIS AM SHE NOTED CHEST PAIN WHICH RADIATED UP INTO HER ENTIRE NECK. THIS CHEST PAIN/NECK PAIN WAS WORSE WHEN LYING FLAT. SHE ALSO FELT NAUSEA WITH THIS CHEST/NECK PAIN. History of Any Multi-Drug Resistant Organisms: None Reported Past Surgical History: Section, Cholecystectomy Additional Past Surgical History / Comment(s): UTERINE ABLATION, right breast biopsy Past Psychological History: No Psychological Hx Reported Smoking Status: Never smoker Past Alcohol Use History: None Reported Past Drug Use History: None Reported - Past Family History Father Family Medical History: Congestive Heart Failure (CHF), Coronary Artery Disease (CAD) Additional Family Medical History / Comment(s): FATHER AT 52 OF CHF Sister(s) Family Medical History: Coronary Artery Disease (CAD), Diabetes Mellitus General Exam Limitations: no limitations General appearance: alert, in no apparent distress Head exam: Present: atraumatic, normocephalic, normal inspection Eye exam: Present: normal appearance, PERRL, EOMI. Absent: scleral icterus, con junctival injection, periorbital swelling ENT exam: Present: mucous membranes moist Neck exam: Present: normal inspection, full ROM. Absent: tenderness, meningismus, lymphadenopathy Respiratory exam: Present: normal lung sounds bilaterally. Absent: respiratory distress, wheezes, rales, rhonchi, stridor Cardiovascular Exam: Present: regular rate, normal rhythm, normal heart sounds. Absent: systolic murmur, diastolic murmur, rubs, gallop, clicks GI/Abdominal exam: Present: soft, tenderness (Moderate left-sided), normal bowel sounds. Absent: distended, guarding, rebound, rigid Back exam: Absent: CVA tenderness (R), CVA tenderness (L) Neurological exam: Present: alert, oriented X3 Skin exam: Present: warm, dry, intact, normal color. Absent: rash Course Vital Signs 04/11/19 04/11/19 04/11/19 06:52 08:00 09:00 Temperature 98.1 F Pulse Rate 78 Respiratory 17 Rate Blood Pressure 131/79 126/81 124/79 O2 Sat by Pulse 97 96 Oximetry Medical Decision Making - Medical Decision Making Patient's labs are essentially unremarkable CT shows evidence of colitis, some small bowel loops aren't dilated. Patient we treated for colitis at this time with Augmentin. Patient states she had a ALLERGY to Cipro. Return parameters were discussed and close follow-up was discussed. - Lab Data Result diagrams: 04/11/19 07:37 04/11/19 07:37 Lab Results 04/11/19 04/11/19 04/11/19 Range/Units 07:37 07:37 07:37 WBC 8.4 (3.8-10.6) k/uL RBC 4.68 (3.80-5.40) m/uL Hgb 15.7 (11.4-16.0) gm/dL Hct 44.5 (34.0-46.0) % MCV 95.1 (80.0-100.0) fL MCH 33.5 (25.0-35.0) pg MCHC 35.3 (31.0-37.0) g/dL RDW 12.2 (11.5-15.5) % Plt Count 207 (150-450) k/uL Neutrophils % 92 % Lymphocytes % 4 % Monocytes % 3 % Eosinophils % 0 % Basophils % 1 % Neutrophils # 7.8 H (1.3-7.7) k/uL Lymphocytes # 0.3 L (1.0-4.8) k/uL Monocytes # 0.2 (0-1.0) k/uL Eosinophils # 0.0 (0-0.7) k/uL Basophils # 0.1 (0-0.2) k/uL Sodium 137 (137-145) mmol/L Potassium 4.1 (3.5-5.1) mmol/L Chloride 104 (98-107) mmol/L Carbon Dioxide 23 (22-30) mmol/L Anion Gap 10 mmol/L BUN 13 (7-17) mg/dL Creatinine 0.56 (0.52-1.04) mg/dL Est GFR (CKD-EPI)AfAm >90 (>60 ml/min/1.73 sqM) Est GFR (CKD-EPI)NonAf >90 (>60 ml/min/1.73 sqM) Glucose 102 H (74-99) mg/dL Plasma Lactic Acid Mike 0.8 (0.7-2.0) mmol/L Calcium 9.0 (8.4-10.2) mg/dL Total Bilirubin 1.4 H (0.2-1.3) mg/dL AST 185 H (14-36) U/L ALT 207 H (9-52) U/L Alkaline Phosphatase 52 (38-126) U/L Total Protein 6.6 (6.3-8.2) g/dL Albumin 4.1 (3.5-5.0) g/dL Amylase 49 (30-110) U/L Lipase 30 (23-300) U/L Urine Color Urine Appearance (Clear) Urine pH (5.0-8.0) Ur Specific [place] (1.001-1.035) Urine Protein (Negative) Urine Glucose (UA) (Negative) Urine Ketones (Negative) Urine Blood (Negative) Urine Nitrite (Negative) Urine Bilirubin (Negative) Urine Urobilinogen (<2.0) mg/dL Ur Leukocyte Esterase (Negative) 04/11/19 Range/Units 07:37 WBC (3.8-10.6) k/uL RBC (3.80-5.40) m/uL Hgb (11.4-16.0) gm/dL Hct (34.0-46.0) % MCV (80.0-100.0) fL MCH (25.0-35.0) pg MCHC (31.0-37.0) g/dL RDW (11.5-15.5) % Plt Count (150-450) k/uL Neutrophils % % Lymphocytes % % Monocytes % % Eosinophils % % Basophils % % Neutrophils # (1.3-7.7) k/uL Lymphocytes # (1.0-4.8) k/uL Monocytes # (0-1.0) k/uL Eosinophils # (0-0.7) k/uL Basophils # (0-0.2) k/uL Sodium (137-145) mmol/L Potassium (3.5-5.1) mmol/L Chloride (98-107) mmol/L Carbon Dioxide (22-30) mmol/L Anion Gap mmol/L BUN (7-17) mg/dL Creatinine (0.52-1.04) mg/dL Est GFR (CKD-EPI)AfAm (>60 ml/min/1.73 sqM) Est GFR (CKD-EPI)NonAf (>60 ml/min/1.73 sqM) Glucose (74-99) mg/dL Plasma Lactic Acid Mike (0.7-2.0) mmol/L Calcium (8.4-10.2) mg/dL Total Bilirubin (0.2-1.3) mg/dL AST (14-36) U/L ALT (9-52) U/L Alkaline Phosphatase (38-126) U/L Total Protein (6.3-8.2) g/dL Albumin (3.5-5.0) g/dL Amylase (30-110) U/L Lipase (23-300) U/L Urine Color Yellow Urine Appearance Clear (Clear) Urine pH 6.0 (5.0-8.0) Ur Specific [place] 1.019 (1.001-1.035) Urine Protein Trace H (Negative) Urine Glucose (UA) Negative (Negative) Urine Ketones 1+ H (Negative) Urine Blood Negative (Negative) Urine Nitrite Negative (Negative) Urine Bilirubin Negative (Negative) Urine Urobilinogen <2.0 (<2.0) mg/dL Ur Leukocyte Esterase Negative (Negative) Disposition Clinical Impression: Colitis Disposition: HOME SELF-CARE Condition: Stable Instructions (If sedation given, give patient instructions): Colitis (ED) Additional Instructions: Please return to the Emergency Department if symptoms worsen or any other concerns. Prescriptions: Amoxicillin/Potassium Clav [Augmentin 875-125 Tablet] 1 tab PO Q12HR #20 tab Is patient prescribed a controlled substance at d/c from ED?: No Referrals: Daljit Alberto MD [Primary Care Provider] - 1-2 days Time of Disposition: 09:22
[2019-04-11 08:11] LABS: ALT 207 U/L (9-52); AST 185 U/L (14-36); African American GFR (CKD) >90 (>60 ml/min/1.73 sqM); Albumin 4.1 g/dL (3.5-5.0); Alkaline Phosphatase 52 U/L (38-126); Amylase 49 U/L (30-110); Anion Gap 10 mmol/L; Blood Urea Nitrogen 13 mg/dL (7-17); Carbon Dioxide 23 mmol/L (22-30); Chloride 104 mmol/L (98-107); Glucose 102 mg/dL (74-99); Non-African American GFR(CKD) >90 (>60 ml/min/1.73 sqM); Sodium 137 mmol/L (137-145); Total Bilirubin 1.4 mg/dL (0.2-1.3); Total Protein 6.6 g/dL (6.3-8.2)
[2019-04-11 08:13] LABS: Potassium 4.1 mmol/L (3.5-5.1)
--- NOTE | 2019-04-11 08:40 | CT ---
EXAMINATION TYPE: CT abdomen pelvis w con DATE OF EXAM: 04/11/2019 COMPARISON: 06/22/2017 HISTORY: 53-year-old female with abdominal pain with vomiting. Prior uterine ablation. TECHNIQUE: Contiguous axial scanning of the abdomen and pelvis following administration of 100 ml Iso sukh 300 IV contrast. Delayed images through the kidneys and coronal/sagittal reconstructions perform ed. CT DLP: 786.2 mGycm Automated exposure control for dose reduction was used. FINDINGS: LUNG BASES: No significant abnormality is appreciated. Small hiatal hernia. LIVER/GB: Some focal fat along the anterior falciform ligament. Mild prominence to the bile duct at 6 mm likely secondary to portal venous system is patent. Postcholecystectomy status PANCREAS: No significant abnormality is seen. SPLEEN: No significant abnormality is seen. ADRENALS: 1.2 cm nodular thickening left adrenal gland stable from 06/22/2017, likely underlying benign adrenal adenoma. KIDNEYS: Symmetric uptake and excretion of contrast from both kidneys. Stable 1.1 cm medial left sandro l cyst. REPRODUCTIVE ORGANS: Uterus anteverted. There are cystic areas at the bilateral fundal cornua measuri ng 1.2 cm on the left and 1 cm on the right. 1.8 cm cystic lesion left adnexa probably dominant folli macho or functional cyst. BOWEL: Suspect visualization of a small caliber appendix. Prominent fluid-filled small bowel loops mi d and lower abdomen and liquid stool throughout the colon. This seems to multiple vertebral thickenin g of the rectum which could be secondary to inflammation or nondistention. PELVIS: Bladder shows mild circumferential wall thickening. Phleboliths on the right side. No abnorma l fluid collection seen or pelvic lymphadenopathy. LYMPH NODES: Scattered nonenlarged mesenteric lymph nodes are unchanged. BONES: Osteitis pubis. Mild degenerative changes of the hips. Transitional lumbosacral segment with L 5 sacralization. IMPRESSION: 1. PROMINENT FLUID-FILLED SMALL BOWEL LOOPS THROUGHOUT THE MID TO LOWER ABDOMEN AND LIQUID STOOL THRO UGHOUT THE COLON. ADDITIONAL BOWEL CIRCUMFERENCE OR WALL THICKENING OF THE RECTUM. CORRELATE FRACTURE OR COLITIS. 2. MILD CIRCUMFERENTIAL BLADDER WALL THICKENING WHICH MAY BE CHRONIC. CORRELATE TO EXCLUDE CYSTITIS. 3. CYSTIC AREAS ALONG THE UTERINE CORNUA MEASURING 1.2 CM AND 1.0 CM ON THE LEFT AND RIGHT SIDES, RES PECTIVELY. GIVEN THE HISTORY OF PRIOR ENDOMETRIAL ABLATION, FINDINGS SUSPICIOUS FOR FOCAL HEMATOMETRA IN THE SETTING OF INCOMPLETE ABLATION. CORRELATE FOR ANY CHRONIC/RECURRENT PELVIC PAIN. IF THE PATIE NT IS POSTMENOPAUSAL, FINDINGS WOULD SUGGEST POSTMENOPAUSAL BLEEDING. FURTHER CLINICAL CORRELATION RE COMMENDED. CONSIDER GYNECOLOGIC REFERRAL.
[2019-04-11] MEDS ORDERED: ACET/COD 300 MG/30 MG STARTER PACK 6 TAB BTL PO STA (09:22)
[2019-04-11 09:36] VITALS: BP 117/75; PULSE 98; RESP 18; TEMP 98.2
== END 2019-04-11 09:45 | disposition home or self-care (01) ==
LOC: EC 06:51
DX: K52.9 Noninfective gastroenteritis and colitis, unspecified (principal); J45.909 Unspecified asthma, uncomplicated; I10 Essential (primary) hypertension; Z88.1 Allergy status to other antibiotic agents; Z88.8 Allergy status to other drugs, medicaments and biological substances; Z79.51 Long term (current) use of inhaled steroids; Z79.899 Other long term (current) drug therapy; Z90.49 Acquired absence of other specified parts of digestive tract
CPT/HCPCS: 36415; 80053; 82150; 83605; 83690; 85025; 81003; 74177; 99284; 96374; 96375; 96361; J2270; J2405; Q9967

== ENCOUNTER → 2019-04-22 | Outpatient (CLI) | payer BC ==
[2019-04-22 12:04] LABS: HCT 42.1 % (34.0-46.0); HGB 15.2 gm/dL (11.4-16.0); MCH 34.3 pg (25.0-35.0); MCHC 36.2 g/dL (31.0-37.0); MCV 94.8 fL (80.0-100.0); Mean Platelet Volume 7.8; Platelet Count 270 k/uL (150-450); RBC 4.44 m/uL (3.80-5.40); RDW 12.4 % (11.5-15.5)
[2019-04-22 16:59] LABS: African American GFR (CKD) 115.5 (60.0-200.0); Albumin 4.5 g/dL (3.80-4.90); Albumin/Globulin Ratio 2.37 (1.60-3.17); Anion Gap 7.7 mmol/L (4.00-12.00); BUN/Creat Ratio 22.86 Ratio (12.00-20.00); Calcium 9.8 mg/dL (8.7-10.3); Carbon Dioxide 27.3 mmol/L (21.6-31.8); Globulin 1.9 g/dL (1.6-3.3); Non-African American GFR(CKD) 99.6 (60.0-200.0); Potassium 4.2 mmol/L (3.5-5.5); Total Bilirubin 0.7 mg/dL (0.2-1.2); Total Protein 6.4 g/dL (6.2-8.2)
== END | disposition home or self-care (01) ==
LOC: LABWHC1 10:45
PROVIDERS: ATTEND Internal Medicine
DX: R10.9 Unspecified abdominal pain (principal); R11.2 Nausea with vomiting, unspecified
CPT/HCPCS: 36415; 80053; 82150; 83690; 85027

== ENCOUNTER → 2019-04-28 | Outpatient (CLI) | payer BC ==
[2019-04-28 10:26] LABS: Appearance,Urine Clear (Clear); Bilirubin,Urine Negative (Negative); Blood,Urine Negative (Negative); Color,Urine Light Yellow; Glucose,Urine (UA) Negative (Negative); Ketones,Urine Negative (Negative); Leukocyte Esterase,Urine Negative (Negative); Nitrite,Urine Negative (Negative); PH, Urine 7.5 (5.0-8.0); Protein,Urine Negative (Negative); Specific Gravity,Urine 1.008 (1.001-1.035); Urobilinogen,Urine <2.0 mg/dL (<2.0)
== END | disposition home or self-care (01) ==
LOC: LABWHC1 09:23
PROVIDERS: ATTEND Internal Medicine
DX: N39.0 Urinary tract infection, site not specified (principal)
CPT/HCPCS: 81003; 87086

== ENCOUNTER → 2019-05-06 | Outpatient (CLI) | payer BC ==
[2019-05-06 10:34] LABS: Basophils % (A) 1 %; Eosinophils # (A) 0.1 k/uL (0-0.7); Eosinophils % (A) 1 %; HCT 44.2 % (34.0-46.0); HGB 15.4 gm/dL (11.4-16.0); Lymphocytes # (A) 1.7 k/uL (1.0-4.8); Lymphocytes % (A) 37 %; MCH 33.8 pg (25.0-35.0); MCHC 34.9 g/dL (31.0-37.0); Mean Platelet Volume 7.9; Monocytes # (A) 0.4 k/uL (0-1.0); Monocytes % (A) 8 %; Neutrophils # (A) 2.4 k/uL (1.3-7.7); Neutrophils % (A) 52 %; Platelet Count 222 k/uL (150-450); RBC 4.55 m/uL (3.80-5.40); RDW 12.3 % (11.5-15.5); WBC 4.6 k/uL (3.8-10.6)
[2019-05-06 17:33] LABS: African American GFR (CKD) 121.5 (60.0-200.0); Albumin 4.5 g/dL (3.80-4.90); Albumin/Globulin Ratio 2.5 (1.60-3.17); Bilirubin, Conjugated 0.2 mg/dL (0.20-0.40); Bilirubin,Unconjugated 0.4 mg/dL; Chol/HDL Ratio 2.88; Globulin 1.8 g/dL (1.6-3.3); LDL Cholesterol,Calculated 83.4 mg/dL (0.0-131.0); Non-African American GFR(CKD) 104.8 (60.0-200.0); Total Bilirubin 0.6 mg/dL (0.2-1.2); Total Protein 6.3 g/dL (6.2-8.2); VLDL Calculation 12.6 mg/dL (5.00-40.00)
== END | disposition home or self-care (01) ==
LOC: LABWHC1 09:25
PROVIDERS: ATTEND Internal Medicine
DX: E78.5 Hyperlipidemia, unspecified (principal)
CPT/HCPCS: 36415; 80061; 80076; 82565; 85025

== ENCOUNTER → 2020-07-15 | Outpatient (CLI) | payer BC ==
[2020-07-15 19:11] LABS: Hepatitis B Core IgM Non-Reactive (Non-Reactive); Hepatitis B Surface Antigen Non-Reactive (Non-Reactive); Hepatitis C IgG Antibody Non-Reactive (Non-Reactive)
== END | disposition home or self-care (01) ==
LOC: LABWHC1 09:49
PROVIDERS: ATTEND Internal Medicine
DX: K75.4 Autoimmune hepatitis (principal)
CPT/HCPCS: 36415; 86704; 86705; 86803; 87340

== ENCOUNTER → 2020-12-17 | Outpatient (CLI) | payer BC ==
--- NOTE | 2020-12-17 12:50 | XR ---
EXAMINATION TYPE: No XR cervical spine 5 views, XR thoracic spine 3 views XR lumbosacral spine 5 views, DATE OF EXAM: 12/17/2020 COMPARISON: None HISTORY: 54-year-old female M5 4.9, dorsalgia. FINDINGS: CERVICAL SPINE: Uncovertebral joint arthropathy mid to lower cervical spine. Facet arthropathy towards the left in th e mid to lower cervical spine. On the left, this results in mild bony neural foraminal narrowing at C 5-C6, C6-C7, and C7-T1. On the right, no significant bony neuroforaminal narrowing. There is moderate disc/endplate degenerative change at C5-C6 with trace grade 1 retrolisthesis here and prominent ante rior endplate spondylosis. Otherwise, alignment is maintained though with reversal of the normal cerv ical lordosis. No predental space widening or prevertebral soft tissue swelling. Normal odontoid view . THORACIC SPINE: 12 rib-bearing thoracic vertebral bodies. All pedicles are visualized. Mild degenerative disc disease throughout the vertebral body heights are preserved and alignment is maintained. Cholecystectomy cli ps. LUMBAR SPINE: There is a transitional lumbosacral segment with a sacralized L5. Facet arthropathy lower lumbar spin e. No pars interarticularis defect. Trace grade 1 anterolisthesis L3-L4. Vertebral body heights are p reserved. IMPRESSION: 1. Cervical spine: Moderate spondylotic change particularly at C5-C6 where there is trace grade 1 ret rolisthesis. Asymmetric left-sided facet arthropathy with mild bony neuroforaminal narrowing on the l eft from C5 through T1 levels. 2. Thoracic spine: Mild degenerative disc disease. No vertebral compression collapse or malalignment. 3. Lumbar spine: Transitional lumbosacral segment with a sacralized L5. Facet arthropathy mid to lowe r lumbar spine with a trace grade 1 anterolisthesis at L3-L4.
--- NOTE | 2020-12-17 12:51 | XR ---
EXAMINATION TYPE: XR Hip Bilateral Complete DATE OF EXAM: 12/17/2020 COMPARISON: NONE HISTORY: 54-year-old female M54.9, dorsalgia TECHNIQUE: 2 views each side FINDINGS: Minimal early marginal spurring of the right hip. Mild superolateral joint space narrowing along the weightbearing aspect of the left hip. Mild marginal spurring along the posterior femoral head neck ju nction on both sides. Pelvic phlebolith. No acute fracture, subluxation, dislocation. IMPRESSION: Mild left hip OA and minimal degenerative spurring at the right hip. No acute osseous abnormality see n.
== END | disposition home or self-care (01) ==
LOC: RADXRMAIN 09:28
PROVIDERS: ATTEND Physician Assistant
DX: M16.0 Bilateral primary osteoarthritis of hip (principal); M47.812 Spondylosis without myelopathy or radiculopathy, cervical region; M51.34 Other intervertebral disc degeneration, thoracic region; M43.16 Spondylolisthesis, lumbar region; M12.88 Other specific arthropathies, not elsewhere classified, other specified site
CPT/HCPCS: 72050; 72070; 72110; 73521